=== PATIENT | male | born 1995 | race Caucasian/White ===

== ENCOUNTER 2018-10-23 13:24 | Emergency (ER) | payer OTHER ==
[2018-10-23 13:40] VITALS: BP 130/75
[2018-10-23] MEDS ORDERED: CYCLOBENZAPRINE 10 MG TABLET PO STA (13:46)
[2018-10-23] MEDS ORDERED: IBUPROFEN 800 MG TABLET PO STA (13:46)
--- NOTE | 2018-10-23 13:48 | ED Physician Documentation ---
PD HPI BACK PAIN - Stated complaint Stated Complaint: BACK PAIN - Chief complaint Chief Complaint: Back Pain - History obtained from History obtained from: Patient, Family () - History of Present Illness Timing - onset: Chronic (He is been having back pain on and off for the last 6 months or so, much worse overnight last night and basically could move this morning although it is a little better now.) Review of Systems Constitutional: denies: Fever, Chills Cardiac: denies: Chest pain / pressure, Palpitations Respiratory: denies: Dyspnea, Cough GI: denies: Abdominal Pain, Nausea, Vomiting PD PAST MEDICAL HISTORY - Present Medications Home Medications: Ambulatory Orders Medication Instructions Recorded Confirmed Cyclobenzaprine [Flexeril] 10 mg PO TID PRN #20 tablet 10/23/18 Ibuprofen [Motrin] 800 mg PO Q8H PRN #30 tablet 10/23/18 - Allergies Allergies/Adverse Reactions: Allergies Allergy/AdvReac Type Severity Reaction Status Date / Time No Known Drug Allergies Allergy Verified 10/23/18 13:36 PD ED PE NORMAL - Vitals Vital signs reviewed: Yes - General General: Alert and oriented X 3, No acute distress - Abdomen Abdomen: Soft, Non tender - Back Back: No spinal TTP, Other (The patient has equal and normal Achilles and patellar reflexes bilaterally. Normal sensation in all areas of the legs. Patient denies saddle anesthesia. Normal strength in flexion-extension at the ankles, knees, and flexion of the hips.) - Neuro Neuro: Alert and oriented X 3, Normal speech - Psych Psych: Normal mood, Normal affect Results - Vitals Vitals: Vital Signs - 24 hr 10/23/18 13:37 Temperature 36.6 C Heart Rate 71 Respiratory 16 Rate Blood Pressure 130/75 O2 Saturation 99 Oxygen O2 Source Room air - Rads (name of study) L spine XR Radiology: EMP read contemporaneously (mild L5 facet arthopathy) Departure - Departure Disposition: 01 Home, Self Care Clinical Impression: Lumbago Qualifiers: Chronicity: acute Back pain laterality: bilateral Sciatica presence: without sciatica Qualified Code(s): M54.5 - Low back pain Condition: Good Record reviewed to determine appropriate education?: Yes Instructions: ED Spasm Back No Trauma Prescriptions: Cyclobenzaprine [Flexeril] 10 mg PO TID PRN #20 tablet PRN Reason: Spasms Ibuprofen [Motrin] 800 mg PO Q8H PRN #30 tablet PRN Reason: PAIN &/OR FEVER Comments: Your x-ray do have mild degenerative changes of the L5 facet joints, but no other major abnormalities. This may or may not be causing your pain, the specific pain you have today seems more like muscle spasm than anything else. [place] return if worse or if new symptoms develop. Forms: Activity restrictions
--- NOTE | 2018-10-23 14:13 | XRAY Report ---
Reason: back pain Procedure Date: 10/23/2018 Accession Number: [id number] / [id number] Procedure: XR - Lumbar Spine 2 View CPT Code: FULL RESULT: EXAM: LUMBOSACRAL SPINE RADIOGRAPHY EXAM DATE: 10/23/2018 01:58 PM. CLINICAL HISTORY: Chronic lumbar spine pain for 6 months. Worse today when getting out of bed. No known trauma. COMPARISONS: None. TECHNIQUE: 2 views. FINDINGS: Lateral radiograph is suboptimal with image degradation due to motion, mildly limited. Alignment: Normal. No spondylolisthesis or scoliosis. Bones: Five [id number] lumbar vertebral bodies are present. No fractures or bone lesions. Disks: Normal. Disk heights are maintained. Facets: Mild facet degenerative changes are identified at the L5 level. Sacroiliac Joints: Unremarkable. Soft Tissues: Normal. The visualized bowel gas pattern is normal. IMPRESSION: Mild L5 facet arthropathy. RADIA
== END 2018-10-23 14:25 | disposition home or self-care (01) ==
LOC: ED 13:24
DX: M54.5 Low back pain (principal)
CPT/HCPCS: 72100; 99281; 99283; A9270

== ENCOUNTER 2019-01-10 18:56 | Emergency (ER) | payer OTHER ==
--- NOTE | 2019-01-10 20:30 | ED Physician Documentation ---
PD HPI BACK PAIN - Stated complaint Stated Complaint: BACK PX - Chief complaint Chief Complaint: Back Pain - History obtained from History obtained from: Patient - History of Present Illness Timing - onset: Enter time (05:45), Today Location: Lower (across lower back) Quality: Pain, Similar to prior episodes Associated symptoms: No: Fever, Weakness, Numbness, Incontinent of urine, Unable to urinate, Hematuria, Incontinent of stool Improves with: Other (as with previous episodes, pain was worst when he first woke up but improved with activity over the ensuing 1-2 hours) Worsened by: Movement Similar symptoms before: No diagnosis Recently seen: Emergency Dept - Additional information Additional information: c/o pain across lower back when he woke at 5:45 AM this morning. the pain was initially worse with movement although it subsequently improved over the following 1-2 hours as he moved around. He has had similar previous episodes and was T+R from this ED 2 months ago for same, had lumbar xrays which showed mild L5 facet degenerative changes Review of Systems Constitutional: denies: Fever, Chills, Sweats GI: denies: Abdominal Pain : denies: Unable to Void, Incontinent Musculoskeletal: reports: Back pain Neurologic: denies: Focal weakness, Numbness PD PAST MEDICAL HISTORY - Past Medical History Past Medical History: No Cardiovascular: None Respiratory: None Neuro: None Endocrine/Autoimmune: None GI: None : None HEENT: None Psych: None Musculoskeletal: None Derm: None - Past Surgical History Past Surgical History: No - Present Medications Home Medications: Ambulatory Orders Medication Instructions Recorded Confirmed Cyclobenzaprine [Flexeril] 10 mg PO TID PRN #20 tablet 10/23/18 Ibuprofen [Motrin] 800 mg PO Q8H PRN #30 tablet 10/23/18 Cyclobenzaprine [Flexeril] 10 mg PO TID PRN #20 tablet 01/10/19 Naproxen 500 mg PO BID #30 tablet 01/10/19 - Allergies Allergies/Adverse Reactions: Allergies Allergy/AdvReac Type Severity Reaction Status Date / Time No Known Drug Allergies Allergy Verified 10/23/18 13:36 - Social History Does the pt smoke?: No Smoking Status: Never smoker Does the pt drink ETOH?: No Does the pt have substance abuse?: No - Immunizations Immunizations are current?: Yes - POLST Patient has POLST: No PD ED PE NORMAL - Vitals Vital signs reviewed: Yes - General General: Alert and oriented X 3, No acute distress, Well developed/nourished - Back Back: No CVA TTP, No spinal TTP - Derm Derm: Normal color, Warm and dry, No rash - Neuro Neuro: No motor deficit, No sensory deficit Results - Vitals Vitals: Vital Signs - 24 hr 01/10/19 01/10/19 18:59 20:49 Temperature 36.5 C 36.4 C L Heart Rate 74 82 Respiratory 14 16 Rate Blood Pressure 135/80 H 134/73 H O2 Saturation 100 98 Oxygen O2 Source Room air PD MEDICAL DECISION MAKING - ED course Complexity details: reviewed old records, considered differential, d/w patient ED course: emergent testing not indicated at this time, rx for alleve and flexeril provided. The recurrent nature of his pain combined with the improvement with movement and worst pain occurring when he first wakes up might suggest an inflammatory cause (such as ankylosing spondylitis), but further evaluation can be undertaken in the outpatient setting Departure - Departure Disposition: 01 Home, Self Care Clinical Impression: Back pain Qualifiers: Back pain location: low back pain Chronicity: chronic Back pain laterality: bilateral Sciatica presence: without sciatica Qualified Code(s): M54.5 - Low back pain Condition: Good Instructions: ED Neck Back Pain General, ANTI-INFLAMMATORY, General Follow-Up: COREY Soto [Provider Group] Prescriptions: Cyclobenzaprine [Flexeril] 10 mg PO TID PRN #20 tablet PRN Reason: Spasms Naproxen 500 mg PO BID #30 tablet Discharge Date/Time: 01/10/19 20:52
[2019-01-10 20:49] VITALS: BP 134/73
== END 2019-01-10 20:52 | disposition home or self-care (01) ==
LOC: ED 18:56
DX: M54.5 Low back pain (principal)
CPT/HCPCS: 99282; 99283

== ENCOUNTER 2021-08-18 10:40 | Outpatient (CLI) | payer OTHER ==
--- NOTE | 2021-08-18 11:28 | MRI Report ---
PROCEDURE: Lumbar Spine W/O INDICATIONS: INFLAMMATORY SPONDYLOPATHY LUMBOSACRAL REGION TECHNIQUE: Noncontrast sagittal T1 spin echo and T2 fast echo, sagittal STIR, axial T1 and T2 fast spin echo thr ough the lumbar spine. In cases with scoliosis, additional coronal T2 fast spin echo may be performe d. COMPARISON: None. FINDINGS: Normal lumbar vertebral body height and alignment. There is no suspicious focal marrow signal abnorma lity or bone marrow edema within the field of view. Visualized portions of the sacroiliac joints demo nstrate no evidence of ankylosis, narrowing, abnormal widening, or abnormal fluid signal. There is no abnormal bone marrow signal intensity adjacent to the sacroiliac joints. At L4-L5, diffuse disc bulge with a superimposed protrusion in the central, right paracentral, and velazquez barticular zones. Disc material displaces the descending right L5 nerve roots within the right subart icular zone. No neural foraminal stenosis. At L5-S1, diffuse disc bulge without mass effect upon the traversing S1 nerve roots. No foraminal shante nosis. From T12-L1 through L3-L4, no spinal canal stenosis, foraminal stenosis, or significant degenerative change. Normal position and appearance of the conus. Regional soft tissues are normal. IMPRESSION: No MR findings of bone marrow edema or other abnormality to coincide with the provided history of inf lammatory spondylopathy. Mild degenerative changes at L4-L5 and L5-S1 S1. Correlate for any potential corresponding radicular symptoms. Reviewed by: Tony Pruett MD on 08/18/2021 11:27 AM PDT Approved by: Tony Pruett MD on 08/18/2021 11:27 AM PDT Station ID: [id number]
== END 2021-08-18 10:41 | disposition home or self-care (01) ==
LOC: DI 10:40
PROVIDERS: ATTEND Internal Medicine
DX: M46.97 Unspecified inflammatory spondylopathy, lumbosacral region (principal); M51.26 Other intervertebral disc displacement, lumbar region